=== PATIENT | male | born 1950 | race Caucasian/White ===

== ENCOUNTER → 2016-10-25 | Outpatient (CLI) | payer MEDICARE, OTHER | LOC: OD 15:23 | PROVIDERS: ATTEND Internal Medicine Infectious Disease | DX: N12 Tubulo-interstitial nephritis, not specified as acute or chronic (principal) | CPT/HCPCS: 87086; 87088; 87186 ==

== ENCOUNTER 2016-11-25 13:10 | Emergency (ER) | payer OTHER, MEDICARE ==
--- NOTE | 2016-11-25 13:37 | ER Document Report ---
ED Medical Screen (RME) - General Stated Complaint: LEFT FLANK PAIN Mode of Arrival: Ambulatory Information source: Patient Notes: c/o left flank pain who has been on 21 days of oral abx (Amoxicillin) and [facility] to come to ED for IV abx denies fever, chills, nausea, vomiting, diarrhea hx of bladder/prostate cancer, has ostomy bags in place TRAVEL OUTSIDE OF THE [place] IN LAST 30 DAYS: No - Related Data Allergies/Adverse Reactions: acetaminophen [From Percocet] Allergy (Verified 11/25/16 13:34) oxycodone [From Percocet] Allergy (Verified 11/25/16 13:34) Physical Exam - Vital signs Vitals: Temp Pulse BP Pulse Ox 97.8 F 100 145/105 H 97 11/25/16 13:25 11/25/16 13:25 11/25/16 13:25 11/25/16 13:25 Course - Vital Signs Vital signs: Temp Pulse Resp BP Pulse Ox 97.8 F 100 145/105 H 97 11/25/16 13:25 11/25/16 13:25 11/25/16 13:25 11/25/16 13:25
[2016-11-25 14:19] LABS: ABSOLUTE EOSINOPHILS # (AUTO) 0.1 10^3/uL (0.0-0.6); ABSOLUTE LYMPHOCYTES (AUTO) 3.1 10^3/uL (0.5-4.7); ABSOLUTE MONOCYTES (AUTO) 0.6 10^3/uL (0.1-1.4); ABSOLUTE NEUT (AUTO) 4.6 10^3/uL (1.7-8.2); BASOPHILS % (AUTO) 0.5 % (0-2); EOSINOPHILS % (AUTO) 1.4 % (0-6); HEMATOCRIT 48.9 % (37.9-51.0); HEMOGLOBIN 16.8 g/dL (13.5-17.0); HGB HCT DIFFERENCE 1.5; LYMPHOCYTES % (AUTO) 36.6 % (13-45); MEAN CORPUSCULAR HEMOGLOBIN 33.1 pg (27.0-33.4); MEAN CORPUSCULAR HGB CONC 34.4 g/dL (32.0-36.0); MEAN CORPUSCULAR VOLUME 96 fl (80-97); MONOCYTES % (AUTO) 6.9 % (3-13); RED CELL DISTRIBUTION WIDTH 14.2 % (11.5-14.0); SEGMENTED NEUTROPHILS % (AUTO) 54.6 % (42-78); WHITE BLOOD COUNT 8.5 10^3/uL (4.0-10.5)
[2016-11-25 14:34] LABS: ALANINE AMINOTRANSFERASE 49 U/L (21-72); ALBUMIN 4.4 g/dL (3.5-5.0); ALKALINE PHOSPHATASE 78 U/L (38-126); ANION GAP 15 (5-19); ASPARTATE AMINO TRANSFERASE 37 U/L (17-59); BILIRUBIN,TOTAL 0.9 mg/dL (0.2-1.3); BLOOD UREA NITROGEN 16 mg/dL (7-20); CALCIUM 10.3 mg/dL (8.4-10.2); CARBON DIOXIDE 20 mmol/L (22-30); CHLORIDE 110 mmol/L (98-107); CREATININE RESULT 1.33 mg/dL (0.52-1.25); GLUCOSE 118 mg/dL (75-110); POTASSIUM 4.1 mmol/L (3.6-5.0); TOTAL PROTEIN 8.5 g/dL (6.3-8.2)
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
[2016-11-25 20:16] LABS: APPEARANCE,URINE SLIGHTLY-CLOUDY; BILIRUBIN,URINE NEGATIVE (NEGATIVE); GLUCOSE, URINE NEGATIVE (NEGATIVE); KETONES,URINE NEGATIVE (NEGATIVE); LEUKOCYTE ESTERASE,URINE LARGE (NEGATIVE); NITRITE,URINE NEGATIVE (NEGATIVE); PROTEIN,URINE 30 mg/dL (NEGATIVE); UROBILINOGEN,URINE NEGATIVE mg/dL (<2.0)
[2016-11-25] MEDS ORDERED: CEFTRIAXONE RTU 1 GM/D5W 50 ML IV ONE (20:20)
[2016-11-26 00:06] VITALS: BP 137/89
== END 2016-11-26 00:04 | disposition home or self-care (01) ==
LOC: ER 13:10
DX: N12 Tubulo-interstitial nephritis, not specified as acute or chronic (principal); Z85.51 Personal history of malignant neoplasm of bladder; Z90.6 Acquired absence of other parts of urinary tract; Z90.79 Acquired absence of other genital organ(s); Z93.6 Other artificial openings of urinary tract status; Z88.6 Allergy status to analgesic agent; Z88.5 Allergy status to narcotic agent; I10 Essential (primary) hypertension
CPT/HCPCS: 99284; 96365; 36415; 87040; 87086; 83605; 85025; 87088; 80053; 81001; 87186; J0696

== ENCOUNTER → 2016-12-10 | Outpatient (CLI) | payer OTHER, MEDICARE ==
[2016-12-10 18:35] LABS: APPEARANCE,URINE TURBID; BILIRUBIN,URINE NEGATIVE (NEGATIVE); GLUCOSE, URINE NEGATIVE (NEGATIVE); KETONES,URINE NEGATIVE (NEGATIVE); LEUKOCYTE ESTERASE,URINE TRACE (NEGATIVE); NITRITE,URINE NEGATIVE (NEGATIVE); PROTEIN,URINE 30 mg/dL (NEGATIVE); TRIPLE PHOSPHATE CRYSTAL,URINE FEW /HPF; URINE SPECIFIC GRAVITY 1.012; UROBILINOGEN,URINE NEGATIVE mg/dL (<2.0)
== END ==
LOC: OD 16:27
PROVIDERS: ATTEND Physician Assistant
DX: N12 Tubulo-interstitial nephritis, not specified as acute or chronic (principal)
CPT/HCPCS: 81001; 87086; 87088; 87186

== ENCOUNTER → 2017-09-05 | Outpatient (CLI) | payer MEDICARE | LOC: OD 09:59 | PROVIDERS: ATTEND Physician Assistant | DX: N39.0 Urinary tract infection, site not specified (principal) | CPT/HCPCS: 87086; 87088; 87186 ==

== ENCOUNTER → 2018-09-06 | Outpatient (CLI) | payer OTHER ==
[~2018-09-06] MED LIST: REGADENOSON INJ 0.4 MG/5 ML DISP.SYRIN IV ONE
--- NOTE | 2018-09-08 17:00 | DRAGON STRESS TEST REPORT ---
Intravenous Lexiscan Cardiolite stress test using single photon emmision computerized tomography. Date of procedure: 09/06/2018. Ordering Provider: Dr. Val Leger, [facility]. Patient's status: Out Patient. Indication: Dyspnea. Coronary risk factors: Age, hypertension, and dyslipidemia. Resting EKG: Sinus Within Normal Limits. Stress EKG: No changes of ischemia. The patient no chest pain or discomfort, and there were no arrhythmias seen. Reason for termination: Protocol. Conclusions: Normal EKG and hemodynamic response to IV Lexiscan. Nuclear data: At rest the patient was given 12.81 millicuries of technetium 99m sestamibi injected intravenously. As per protocol rest non gated SPECT images were obtained. Subsequently the patient was given intravenous Lexiscan at a dose of 0.4 mg in 5 mL intravenously, followed by flush with normal saline. Subsequently the stress dose of 39.3 millicuries of technetium 99m sestamibi was injected intravenously. As per protocol stress gated images were obtained. Nuclear interpretation: Review of images showed that there is a perfusion defect involving the basal inferior wall in both rest and the stress images. This area of the basal inferior wall had decreased motion contraction and thickening, by gated study, consistent with a prior myocardial infarction. The rest of the segments of the myocardium had normal perfusion at rest, and normal perfusion post stress with IV Lexiscan. The rest of the segments of the myocardium had normal motion, contraction, and thickening by gated study. T. I D. ratio was normal at 1.04. Computer read rest, and stress left ventricular ejection fraction were 51 %, and 54 %, respectively. Visually both the stress and rest ejection fractions were normal, and greater than 55%. Conclusion: 1. There is no scintigraphic evidence of Lexiscan induced myocardial ischemia. 2. There is scintigraphic evidence of myocardial infarction/scar involving the basal inferior wall. Recommendations: 1. Correlate clinically. 2. Aggressive risk factor modification, and treating the underlying co- morbidities. RUBI
== END ==
LOC: RAD 06:51
PROVIDERS: ATTEND Physician Assistant Medical
DX: R06.00 Dyspnea, unspecified (principal)
CPT/HCPCS: 93017; 78452; A9500; J2785; Q9969

== ENCOUNTER 2019-04-12 22:09 | Inpatient (IN) | payer MEDICARE, OTHER ==
[2019-04-12] MEDS ORDERED: ACETAMINOPHEN 325 MG TABLET PO ONE (23:20)
[2019-04-12] MEDS ORDERED: NORMAL SALINE 1000 ML 1,000 ML IV ONE (23:21)
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
--- NOTE | 2019-04-12 23:47 | RADIOLOGY REPORT (SQ) ---
EXAM DESCRIPTION: [facility]: XR CHEST 1 VIEW CLINICAL HISTORY: 68 years Male, fever COMPARISON: 04/05/2016 FINDINGS: Lungs are clear, with no focal infiltrate, pneumothorax, or pleural effusion. Mediastinum is within normal limits for this positioning. There are degenerative changes of the left shoulder, similar to prior exam. [Surgical clip is again noted. IMPRESSION: 1. No acute pulmonary findings.
[2019-04-13 00:35] LABS: ABSOLUTE EOSINOPHILS # (AUTO) 0.1 10^3/uL (0.0-0.6); ABSOLUTE LYMPHOCYTES (AUTO) 1.3 10^3/uL (0.5-4.7); ABSOLUTE MONOCYTES (AUTO) 1.2 10^3/uL (0.1-1.4); ABSOLUTE NEUT (AUTO) 8.7 10^3/uL (1.7-8.2); BASOPHILS % (AUTO) 0.4 % (0-2); EOSINOPHILS % (AUTO) 0.6 % (0-6); HEMATOCRIT 43.5 % (37.9-51.0); HEMOGLOBIN 14.9 g/dL (13.5-17.0); LYMPHOCYTES % (AUTO) 11.3 % (13-45); MEAN CORPUSCULAR HEMOGLOBIN 33.2 pg (27.0-33.4); MEAN CORPUSCULAR HGB CONC 34.2 g/dL (32.0-36.0); MEAN CORPUSCULAR VOLUME 97 fl (80-97); MONOCYTES % (AUTO) 10.7 % (3-13); PLATELET COUNT 148 10^3/uL (150-450); RED BLOOD COUNT 4.48 10^6/uL (4.35-5.55); RED CELL DISTRIBUTION WIDTH 14.3 % (11.5-14.0); TOTAL CELLS COUNTED % (AUTO) 100 %; VENOUS BLOOD BASE EXCESS -1.6 mmol/L; VENOUS BLOOD HCO3 22.7 mmol/L (20-32); VENOUS BLOOD PCO2 37.1 mmHg (35-63); VENOUS BLOOD PH 7.4 (7.30-7.42); WHITE BLOOD COUNT 11.3 10^3/uL (4.0-10.5)
[2019-04-13 00:40] LABS: APPEARANCE,URINE CLOUDY; BILIRUBIN,URINE NEGATIVE (NEGATIVE); COLOR,URINE YELLOW; GLUCOSE, URINE 50 mg/dL (NEGATIVE); KETONES,URINE TRACE mg/dL (NEGATIVE); LEUKOCYTE ESTERASE,URINE NEGATIVE (NEGATIVE); NITRITE,URINE POSITIVE (NEGATIVE); PROTEIN,URINE 100 mg/dL (NEGATIVE); TRIPLE PHOSPHATE CRYSTAL,URINE FEW /HPF; URINE SPECIFIC GRAVITY 1.017; UROBILINOGEN,URINE NEGATIVE mg/dL (<2.0)
[2019-04-13 00:51] LABS: ALANINE AMINOTRANSFERASE 41 U/L (21-72); ALBUMIN 4.1 g/dL (3.5-5.0); ALKALINE PHOSPHATASE 62 U/L (38-126); ANION GAP 12 (5-19); ASPARTATE AMINO TRANSFERASE 38 U/L (17-59); BILIRUBIN,DIRECT 0.2 mg/dL (0.0-0.4); BILIRUBIN,TOTAL 0.8 mg/dL (0.2-1.3); BLOOD UREA NITROGEN 20 mg/dL (7-20); CALCIUM 9.5 mg/dL (8.4-10.2); CARBON DIOXIDE 20 mmol/L (22-30); CHLORIDE 110 mmol/L (98-107); GLUCOSE 119 mg/dL (75-110); POTASSIUM 4.2 mmol/L (3.6-5.0); SODIUM 142.1 mmol/L (137-145); TOTAL PROTEIN 7.4 g/dL (6.3-8.2)
[2019-04-13] MEDS ORDERED: CEFTRIAXONE 1 GM/D5W RTU 1 GM/50 ML RTUPB IV ONE (00:59)
[2019-04-13 01:02] LABS: APPEARANCE,URINE CLOUDY; BILIRUBIN,URINE NEGATIVE (NEGATIVE); COLOR,URINE YELLOW; GLUCOSE, URINE NEGATIVE (NEGATIVE); KETONES,URINE NEGATIVE (NEGATIVE); LEUKOCYTE ESTERASE,URINE LARGE (NEGATIVE); NITRITE,URINE NEGATIVE (NEGATIVE); PROTEIN,URINE 100 mg/dL (NEGATIVE); URINE SPECIFIC GRAVITY 1.011; UROBILINOGEN,URINE NEGATIVE mg/dL (<2.0)
--- NOTE | 2019-04-13 01:32 | RADIOLOGY REPORT (SQ) ---
EXAM DESCRIPTION: [facility]: CT ABDOMEN PELVIS WITHOUT IV CONTRAST CLINICAL HISTORY: 68 years Male; fever, hx kidney stones, urostomy, nephrostomy TECHNIQUE: CT of the abdomen and pelvis without contrast. All CT scans at this facility use dose modulation, iterative reconstruction, and/or weight based dosing when appropriate to reduce radiation dose to as low as reasonably achievable. COMPARISON: 04/05/2016 FINDINGS: Mild coronary artery calcifications. Abdomen: Liver:No focal lesions. No intrahepatic ductal distention. Gallbladder:Nondistended Pancreas:Within normal limits Spleen:Within normal limits Right kidney: No hydronephrosis. No ureteral distention. Left kidney: Percutaneous nephrostomy is in place, with tip in the extrarenal pelvis. No hydronephrosis. Minimal perinephric edema, without focal perinephric fluid collection. Ureter is nondistended, extending into the ileal conduit the right lower quadrant. Adrenal glands:Within normal limits Vascular structures: Mild scattered calcific plaque without aneurysm. Pelvis: Small bowel:No significant distention. Appendix: Not identified Colon: Scattered diverticula. No acute pericolonic edema or colonic distention. No free intraperitoneal fluid or air. Bones: Chronic degenerative changes throughout the lumbar spine. No acute bone findings. No suspicious focal bone lesions. Bladder: Absent. Ileal conduit in the right lower quadrant is nondistended. No adjacent edema. Prostate is not identified. No enlarged pelvic lymph nodes. Note that evaluation of the bowel and solid organs is somewhat limited due to lack of intravenous and oral contrast. IMPRESSION: 1. left percutaneous nephrostomy is in place. No hydronephrosis. Mild perinephric edema. Cannot exclude pyelonephritis. 2. Both ureters insert on right lower quadrant neobladder, without distention. 3. No acute findings 4. Mild colonic diverticulosis but no evidence for acute diverticulitis
[2019-04-13] MEDS ORDERED: MAG HYDROX/AL HYDROX/SIMETH SUSP 30 ML UDCUP PO PRN (02:52)
[2019-04-13] MEDS ORDERED: ACETAMINOPHEN 325 MG TABLET PO PRN (02:52)
[2019-04-13] MEDS ORDERED: IPRATROPIUM/ALBUTEROL 0.5-2.5 MG/3 ML AMPUL NEB PRN (02:52)
[2019-04-13] MEDS: NORMAL SALINE 1000 ML 1,000 ML IV PRN ×3 (04:35→17:34)
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
[2019-04-13] MEDS: HEPARIN SOD (PORCINE) 5,000 UNIT/ML 1 ML SYRINGE SUBCUT SCH ×3 (07:20→22:23)
[2019-04-13] MEDS: ACETAMINOPHEN 325 MG TABLET PO PRN ×2 (10:04→22:22)
[2019-04-13] MEDS ORDERED: ONDANSETRON HCL INJ/PF 4 MG/2 ML SDV IV PRN (10:18)
--- NOTE | 2019-04-13 12:08 | Progress Note ---
Provider Note Provider Note: SHARITA ORTIZ is a 68 year old male with a past medical history of hypertension and urinary bladder cancer status post resection with urostomy and nephrostomy with subsequent recurrent urinary tract infections who was admitted early this morning by the [facility] for pyelonephritis. Overnight events, Vital Signs, imaging and laboratory results, and orders reviewed. Agree with the plan of care as established by the previous provider. In addition have added prn tylenol, zofran, and gentle IVF.
--- NOTE | 2019-04-13 14:02 | EKG REPORT ---
SEVERITY:- ABNORMAL ECG - SINUS TACHYCARDIA PROBABLE INFERIOR INFARCT, AGE INDETERMINATE : Confirmed by: Dorina Koroma 13-Apr-2019 14:00:51
[2019-04-13] MEDS: METHOCARBAMOL 750 MG TABLET PO SCH ×2 (15:04→22:22)
[2019-04-13] MEDS: KETOROLAC TROMETHAMINE INJ/PF 30 MG/1 ML SDV IV PRN (17:33)
[2019-04-13] MEDS ORDERED: ACETAMINOPHEN 650 MG SUPP.RECT PR PRN (17:37)
[2019-04-13] MEDS ORDERED: PROMETHAZINE HCL INJ 25 MG/1 ML VIAL IV PRN (17:37)
[2019-04-13] MEDS ORDERED: CEFTRIAXONE 1 GM/D5W RTU 1 GM/50 ML RTUPB IV SCH (22:00)
[2019-04-13] MEDS: CEFTRIAXONE SODIUM 1,000 MG in DEXTROSE 5%-WATER 50 ML IV SCH (22:22)
[2019-04-14 05:23] LABS: ABSOLUTE EOSINOPHILS # (AUTO) 0.1 10^3/uL (0.0-0.6); ABSOLUTE LYMPHOCYTES (AUTO) 1.6 10^3/uL (0.5-4.7); ABSOLUTE MONOCYTES (AUTO) 1.2 10^3/uL (0.1-1.4); ABSOLUTE NEUT (AUTO) 4.4 10^3/uL (1.7-8.2); BASOPHILS % (AUTO) 0.3 % (0-2); HEMOGLOBIN 13.2 g/dL (13.5-17.0); LYMPHOCYTES % (AUTO) 21.9 % (13-45); MEAN CORPUSCULAR HEMOGLOBIN 33.4 pg (27.0-33.4); MEAN CORPUSCULAR HGB CONC 33.9 g/dL (32.0-36.0); MEAN CORPUSCULAR VOLUME 99 fl (80-97); MONOCYTES % (AUTO) 16.4 % (3-13); PLATELET COUNT 110 10^3/uL (150-450); RED BLOOD COUNT 3.95 10^6/uL (4.35-5.55); RED CELL DISTRIBUTION WIDTH 14.1 % (11.5-14.0); SEGMENTED NEUTROPHILS % (AUTO) 60.4 % (42-78); TOTAL CELLS COUNTED % (AUTO) 100 %; WHITE BLOOD COUNT 7.3 10^3/uL (4.0-10.5)
[2019-04-14 05:44] LABS: ANION GAP 8 (5-19); BLOOD UREA NITROGEN 18 mg/dL (7-20); CALCIUM 8.5 mg/dL (8.4-10.2); CARBON DIOXIDE 22 mmol/L (22-30); CHLORIDE 111 mmol/L (98-107); GLUCOSE 96 mg/dL (75-110); POTASSIUM 4.4 mmol/L (3.6-5.0); SODIUM 141.2 mmol/L (137-145)
[2019-04-14] MEDS: METHOCARBAMOL 750 MG TABLET PO SCH ×3 (06:36→21:21)
[2019-04-14] MEDS: TRAMADOL HCL 50 MG TABLET PO PRN (06:36)
[2019-04-14] MEDS: HEPARIN SOD (PORCINE) 5,000 UNIT/ML 1 ML SYRINGE SUBCUT SCH ×3 (06:36→21:20)
[2019-04-14] MEDS: ACETAMINOPHEN 325 MG TABLET PO PRN ×2 (08:29→23:10)
[2019-04-14] MEDS: CETIRIZINE 10 MG TABLET PO SCH (09:05)
[2019-04-14] MEDS: ASPIRIN 81 MG TABLET, ENT COATED PO SCH (09:05)
[2019-04-14] MEDS: ALLOPURINOL 100 MG TABLET PO SCH (09:05)
[2019-04-14] MEDS: KETOROLAC TROMETHAMINE INJ/PF 30 MG/1 ML SDV IV PRN (09:05)
--- NOTE | 2019-04-14 18:22 | PDOC PROGRESS REPORT ---
Subjective Progress Note for:: 04/14/19 Subjective:: ANGELLA ORTIZ is a 68 year old male with a past medical history of hypertension and urinary bladder cancer status post resection with urostomy and nephrostomy with subsequent recurrent urinary tract infections admitted on 04/13/19 for pyelonephritis. Patient was seen on afternoon rounds with family members present. He is found resting in bed comfortably on room air eating his dinner. He reports fever and chills overnight; T-max 100.2 and last 24 hours. He does report that his left flank pain is improved and his nausea and vomiting have resolved. ROS is otherwise negative. He has no new questions or concerns. No concerns per nursing. Reason For Visit: LEFT PYELO Physical Exam Vital Signs: Temp Pulse Resp BP Pulse Ox 98.2 F 54 L 16 102/75 96 04/14/19 11:25 04/14/19 14:00 04/14/19 11:25 04/14/19 11:25 04/14/19 11:25 Intake & Output 04/13/19 04/14/19 04/15/19 06:59 06:59 06:59 Intake Total 2050 2884 Output Total 225 1325 Balance 1825 1559 Weight 87.54 kg 84.3 kg General appearance: PRESENT: no acute distress, well-developed, well-nourished - overweight Head exam: PRESENT: atraumatic, normocephalic Eye exam: PRESENT: conjunctiva pink, EOMI, PERRLA. ABSENT: scleral icterus Ear exam: PRESENT: normal external ear exam Mouth exam: PRESENT: moist, tongue midline Neck exam: ABSENT: carotid bruit, JVD, lymphadenopathy, thyromegaly Respiratory exam: PRESENT: clear to auscultation jo ann, symmetrical, unlabored. ABSENT: rales, rhonchi, wheezes Cardiovascular exam: PRESENT: RRR. ABSENT: diastolic murmur, rubs, systolic murmur Pulses: PRESENT: normal dorsalis pedis pul Vascular exam: PRESENT: normal capillary refill GI/Abdominal exam: PRESENT: normal bowel sounds, soft. ABSENT: distended, guarding, mass, organolmegaly, rebound, tenderness Rectal exam: PRESENT: deferred Gentrourinary exam: PRESENT: other - urostomy and nephrostomy tubes; both draining clear urine. No gross hematuria noted Extremities exam: PRESENT: full ROM. ABSENT: calf tenderness, clubbing, pedal edema Neurological exam: PRESENT: alert, awake, oriented to person, oriented to place, oriented to time, oriented to situation, CN II-XII grossly intact. ABSENT: motor sensory deficit Psychiatric exam: PRESENT: appropriate affect, normal mood. ABSENT: homicidal ideation, suicidal ideation Skin exam: PRESENT: dry, intact, warm. ABSENT: cyanosis, rash Results Laboratory Results: 04/14/19 04:52 04/14/19 04:52 04/14/19 04/14/19 04:52 04:52 WBC 7.3 RBC 3.95 L Hgb 13.2 L Hct 39.0 MCV 99 H MCH 33.4 MCHC 33.9 RDW 14.1 H Plt Count 110 L Seg Neutrophils % 60.4 Lymphocytes % 21.9 Monocytes % 16.4 H Eosinophils % 1.0 Basophils % 0.3 Absolute Neutrophils 4.4 Absolute Lymphocytes 1.6 Absolute Monocytes 1.2 Absolute Eosinophils 0.1 Absolute Basophils 0.0 Sodium 141.2 Potassium 4.4 Chloride 111 H Carbon Dioxide 22 Anion Gap 8 BUN 18 Creatinine 1.40 H Est GFR ( Amer) > 60 Est GFR (Non-Af Amer) 50 L Glucose 96 Calcium 8.5 04/13/19 00:15 Troponin I < 0.012 Impressions: Chest X-Ray 04/12/19 23:20 IMPRESSION: 1. No acute pulmonary findings. Abdomen/Pelvis CT 04/13/19 00:22 IMPRESSION: 1. left percutaneous nephrostomy is in place. No hydronephrosis. Mild perinephric edema. Cannot exclude pyelonephritis. 2. Both ureters insert on right lower quadrant neobladder, without distention. 3. No acute findings 4. Mild colonic diverticulosis but no evidence for acute diverticulitis Assessment and Plan - Diagnosis (1) Pyelonephritis Is this a current diagnosis for this admission?: Yes Plan: Complicated by nephrostomy tube but without obstruction or abscess. Blood cultures are negative at 24 hours. Urostomy urine culture with 2 strains gram-negative rods and 1 strain gram- positive cocci. Nephrostomy urine culture with 2 strains gram-negative rods. Continue IV Rocephin; day #2. Continue gentle IV fluids. Antiemetics, antipyretics, and analgesics as needed. (2) Fever Qualifiers: Fever type: unspecified Qualified Code(s): R50.9 - Fever, unspecified Is this a current diagnosis for this admission?: Yes Plan: Secondary to #1. T-max 102 last 24 hours Cultures and antibiotics as above. (3) Left flank pain Is this a current diagnosis for this admission?: Yes Plan: Secondary to #1 Tylenol, Tramadol, and Toradol as needed (4) Leukocytosis Is this a current diagnosis for this admission?: Yes Plan: Resolved. Secondary to #1. Cultures and antibiotics as above.
[2019-04-14] MEDS: CEFTRIAXONE SODIUM 1,000 MG in DEXTROSE 5%-WATER 50 ML IV SCH (21:21)
[2019-04-15] MEDS: NORMAL SALINE 1000 ML 1,000 ML IV PRN (05:10)
[2019-04-15] MEDS: HEPARIN SOD (PORCINE) 5,000 UNIT/ML 1 ML SYRINGE SUBCUT SCH ×3 (05:10→21:57)
[2019-04-15] MEDS: METHOCARBAMOL 750 MG TABLET PO SCH ×3 (05:11→21:57)
[2019-04-15 05:39] LABS: HEMATOCRIT 35.5 % (37.9-51.0); HEMOGLOBIN 11.9 g/dL (13.5-17.0); MEAN CORPUSCULAR HGB CONC 33.6 g/dL (32.0-36.0); MEAN CORPUSCULAR VOLUME 98 fl (80-97); PLATELET COUNT 107 10^3/uL (150-450); RED BLOOD COUNT 3.62 10^6/uL (4.35-5.55); RED CELL DISTRIBUTION WIDTH 14.3 % (11.5-14.0); WHITE BLOOD COUNT 6.6 10^3/uL (4.0-10.5)
[2019-04-15 05:58] LABS: ANION GAP 9 (5-19); BLOOD UREA NITROGEN 16 mg/dL (7-20); CARBON DIOXIDE 19 mmol/L (22-30); CHLORIDE 113 mmol/L (98-107); GLUCOSE 120 mg/dL (75-110); SODIUM 140.6 mmol/L (137-145)
[2019-04-15] MEDS: ALLOPURINOL 100 MG TABLET PO SCH (09:39)
[2019-04-15] MEDS: CETIRIZINE 10 MG TABLET PO SCH (09:39)
[2019-04-15] MEDS: ASPIRIN 81 MG TABLET, ENT COATED PO SCH (09:39)
[2019-04-15] MEDS: ACETAMINOPHEN 325 MG TABLET PO PRN ×2 (09:42→21:56)
[2019-04-15] MEDS ORDERED: PIPERACILLIN SODIUM/TAZOBACTAM 3.375 GM in NORMAL SALINE 100 ML IV SCH (18:00)
--- NOTE | 2019-04-15 18:02 | PDOC PROGRESS REPORT ---
Subjective Progress Note for:: 04/15/19 Subjective:: ANGELLA ORTIZ is a 68 year old male with a past medical history of hypertension and urinary bladder cancer status post resection with urostomy and nephrostomy with subsequent recurrent urinary tract infections admitted on 04/13/19 for pyelonephritis. Patient was seen on afternoon rounds with family members present. He is found resting in bed comfortably on room air eating his dinner. He reports fever and chills overnight; T-max 100.1 and last 24 hours; 102 in last 48 hrs. He does report that his left flank pain is improved and his nausea and vomiting have re solved. ROS is otherwise negative. He has no new questions or concerns. No concerns per nursing. Reason For Visit: LEFT PYELO Physical Exam Vital Signs: Temp Pulse Resp BP Pulse Ox 99.2 F 48 L 18 127/58 H 95 04/15/19 03:57 04/15/19 14:00 04/15/19 11:45 04/15/19 03:57 04/15/19 11:45 Intake & Output 04/14/19 04/15/19 04/16/19 06:59 06:59 06:59 Intake Total 3884 1570 660 Output Total 1325 1000 Balance 2559 570 660 Weight 84.3 kg 87.9 kg General appearance: PRESENT: no acute distress, cooperative, well-developed, well-nourished - overweight Head exam: PRESENT: atraumatic, normocephalic Eye exam: PRESENT: conjunctiva pink, EOMI, PERRLA. ABSENT: scleral icterus Ear exam: PRESENT: normal external ear exam Mouth exam: PRESENT: moist, tongue midline Neck exam: ABSENT: carotid bruit, JVD, lymphadenopathy, thyromegaly Respiratory exam: PRESENT: clear to auscultation jo ann, symmetrical, unlabored. ABSENT: rales, rhonchi, wheezes Cardiovascular exam: PRESENT: RRR, +S1, +S2. ABSENT: diastolic murmur, rubs, systolic murmur Pulses: PRESENT: normal dorsalis pedis pul Vascular exam: PRESENT: normal capillary refill GI/Abdominal exam: PRESENT: normal bowel sounds, soft. ABSENT: distended, guarding, mass, organolmegaly, rebound, tenderness Rectal exam: PRESENT: deferred Gentrourinary exam: PRESENT: other - urostomy and nephrostomy tubes; both draining clear urine. Extremities exam: PRESENT: full ROM. ABSENT: calf tenderness, clubbing, pedal edema Neurological exam: PRESENT: alert, awake, oriented to person, oriented to place, oriented to time, oriented to situation, CN II-XII grossly intact. ABSENT: motor sensory deficit Psychiatric exam: PRESENT: appropriate affect, normal mood. ABSENT: homicidal ideation, suicidal ideation Skin exam: PRESENT: dry, intact, warm. ABSENT: cyanosis, rash Results Laboratory Results: 04/15/19 04:58 04/15/19 04:58 04/15/19 04/15/19 04:58 04:58 WBC 6.6 RBC 3.62 L Hgb 11.9 L Hct 35.5 L MCV 98 H MCH 33.0 MCHC 33.6 RDW 14.3 H Plt Count 107 L Sodium 140.6 Potassium 4.0 Chloride 113 H Carbon Dioxide 19 L Anion Gap 9 BUN 16 Creatinine 1.20 Est GFR ( Amer) > 60 Est GFR (Non-Af Amer) > 60 Glucose 120 H Calcium 8.0 L 04/13/19 00:15 Troponin I < 0.012 Impressions: Chest X-Ray 04/12/19 23:20 IMPRESSION: 1. No acute pulmonary findings. Abdomen/Pelvis CT 04/13/19 00:22 IMPRESSION: 1. left percutaneous nephrostomy is in place. No hydronephrosis. Mild perinephric edema. Cannot exclude pyelonephritis. 2. Both ureters insert on right lower quadrant neobladder, without distention. 3. No acute findings 4. Mild colonic diverticulosis but no evidence for acute diverticulitis Assessment and Plan - Diagnosis (1) Pyelonephritis Is this a current diagnosis for this admission?: Yes Plan: Complicated by nephrostomy tube but without obstruction or abscess. Blood cultures are negative at 48 hours. Urostomy urine culture with pseudomonas aeruginosa, enterococcus faecalis, and 1 strain gram-neg kellie Nephrostomy urine culture with pseudomonas aeruginosa and 1 strain gram- negative rods. Continue IV Rocephin; day #3. Start IV Levaquin (reports PCN allergy) Continue gentle IV fluids. Antiemetics, antipyretics, and analgesics as needed. (2) Fever Qualifiers: Fever type: unspecified Qualified Code(s): R50.9 - Fever, unspecified Is this a current diagnosis for this admission?: Yes Plan: Secondary to #1. T-max 100.1 last 24 hours, 102 last 48 Cultures and antibiotics as above. (3) Left flank pain Is this a current diagnosis for this admission?: Yes Plan: Improved. Secondary to #1 Tylenol, Tramadol, and Toradol as needed (4) Leukocytosis Is this a current diagnosis for this admission?: Yes Plan: Resolved. Secondary to #1. Cultures and antibiotics as above. - Time Time Spent with patient: 15-24 minutes Medications reviewed and adjusted accordingly: Yes Anticipated discharge: Home Within: within 48 hours
[2019-04-15] MEDS: LEVOFLOXACIN 750 MG/D5W RTU 750 MG/150 ML RTUPB IV SCH (18:47)
[2019-04-15] MEDS: CEFTRIAXONE SODIUM 1,000 MG in DEXTROSE 5%-WATER 50 ML IV SCH (21:56)
[2019-04-16] MEDS: METHOCARBAMOL 750 MG TABLET PO SCH ×3 (05:28→21:21)
[2019-04-16] MEDS: TRAMADOL HCL 50 MG TABLET PO PRN (05:28)
[2019-04-16] MEDS: HEPARIN SOD (PORCINE) 5,000 UNIT/ML 1 ML SYRINGE SUBCUT SCH ×3 (06:28→21:21)
[2019-04-16] MEDS: CETIRIZINE 10 MG TABLET PO SCH (10:57)
[2019-04-16] MEDS: ALLOPURINOL 100 MG TABLET PO SCH (10:58)
[2019-04-16] MEDS: ASPIRIN 81 MG TABLET, ENT COATED PO SCH (10:58)
[2019-04-16] MEDS: ACETAMINOPHEN 325 MG TABLET PO PRN ×2 (11:01→18:52)
[2019-04-16] MEDS: LEVOFLOXACIN 750 MG/D5W RTU 750 MG/150 ML RTUPB IV SCH (17:39)
--- NOTE | 2019-04-16 19:38 | PDOC PROGRESS REPORT ---
Subjective Progress Note for:: 04/16/19 Subjective:: ANGELLA ORTIZ is a 68 year old male with a past medical history of hypertension and urinary bladder cancer status post resection with urostomy and nephrostomy with subsequent recurrent urinary tract infections admitted on 04/13/19 for pyelonephritis. Patient was seen on afternoon rounds with family members present. He is found resting in bed comfortably on room air eating his dinner. T-max 100.1 and last 48 hrs. He does report that his left flank pain is improved and his nausea and vomiting have resolved. ROS is otherwise negative. He has no new questions or concerns. No concerns per nursing. Reason For Visit: LEFT PYELO Physical Exam Vital Signs: Temp Pulse Resp BP Pulse Ox 98.1 F 55 L 21 H 147/71 H 97 04/16/19 18:32 04/16/19 18:32 04/16/19 18:32 04/16/19 18:32 04/16/19 18:32 Intake & Output 04/15/19 04/16/19 04/17/19 06:59 06:59 06:59 Intake Total 1570 3060 Output Total 1000 1900 Balance 570 1160 Weight 87.9 kg 86.7 kg General appearance: PRESENT: no acute distress, cooperative, well-developed, well-nourished - overweight Head exam: PRESENT: atraumatic, normocephalic Eye exam: PRESENT: conjunctiva pink, EOMI, PERRLA. ABSENT: scleral icterus Ear exam: PRESENT: normal external ear exam Mouth exam: PRESENT: moist, tongue midline Neck exam: ABSENT: carotid bruit, JVD, lymphadenopathy, thyromegaly Respiratory exam: PRESENT: clear to auscultation jo ann, symmetrical, unlabored. ABSENT: rales, rhonchi, wheezes Cardiovascular exam: PRESENT: RRR. ABSENT: diastolic murmur, rubs, systolic murmur Pulses: PRESENT: normal dorsalis pedis pul Vascular exam: PRESENT: normal capillary refill GI/Abdominal exam: PRESENT: normal bowel sounds, soft. ABSENT: distended, guarding, mass, organolmegaly, rebound, tenderness Rectal exam: PRESENT: deferred Gentrourinary exam: PRESENT: other - left nephrostomy, urostomy Extremities exam: PRESENT: full ROM. ABSENT: calf tenderness, clubbing, pedal edema Neurological exam: PRESENT: alert, awake, oriented to person, oriented to place, oriented to time, oriented to situation, CN II-XII grossly intact. ABSENT: motor sensory deficit Psychiatric exam: PRESENT: appropriate affect, normal mood. ABSENT: homicidal ideation, suicidal ideation Skin exam: PRESENT: dry, intact, warm. ABSENT: cyanosis, rash Results Laboratory Results: 04/15/19 04:58 04/15/19 04:58 04/13/19 00:07 Urostomy Urine Culture - Final Pseudomonas Aeruginosa Enterococcus Faecalis(Group D) 04/13/19 00:15 Troponin I < 0.012 Impressions: Chest X-Ray 04/12/19 23:20 IMPRESSION: 1. No acute pulmonary findings. Abdomen/Pelvis CT 04/13/19 00:22 IMPRESSION: 1. left percutaneous nephrostomy is in place. No hydronephrosis. Mild perinephric edema. Cannot exclude pyelonephritis. 2. Both ureters insert on right lower quadrant neobladder, without distention. 3. No acute findings 4. Mild colonic diverticulosis but no evidence for acute diverticulitis Assessment and Plan - Diagnosis (1) Pyelonephritis Is this a current diagnosis for this admission?: Yes Plan: Complicated by nephrostomy tube but without obstruction or abscess. Blood cultures are negative at 48 hours. Urostomy urine culture with pseudomonas aeruginosa, enterococcus faecalis Nephrostomy urine culture with pseudomonas aeruginosa, Gram negative rods, and gram positive cocci Continue IV Rocephin; day #4. Continue IV Levaquin (reports PCN allergy); Day #2 Continue gentle IV fluids. Antiemetics, antipyretics, and analgesics as needed. Patient is requesting consideration of being placed on prophylactic antibiotic therapy to begin following treatment for acute infection. He may also benefit from outpatient ID follow up (2) Fever Qualifiers: Fever type: unspecified Qualified Code(s): R50.9 - Fever, unspecified Is this a current diagnosis for this admission?: Yes Plan: Improved. Secondary to #1. T-max 100.1 last 48 Cultures and antibiotics as above. (3) Left flank pain Is this a current diagnosis for this admission?: Yes Plan: Improved. Secondary to #1 Tylenol, Tramadol, and Toradol as needed (4) Leukocytosis Is this a current diagnosis for this admission?: Yes Plan: Resolved. Secondary to #1. Cultures and antibiotics as above. - Time Time Spent with patient: 25-34 minutes Medications reviewed and adjusted accordingly: Yes Anticipated discharge: Home Within: within 24 hours
[2019-04-16] MEDS: CEFTRIAXONE SODIUM 1,000 MG in DEXTROSE 5%-WATER 50 ML IV SCH (21:20)
[2019-04-17] MEDS: HEPARIN SOD (PORCINE) 5,000 UNIT/ML 1 ML SYRINGE SUBCUT SCH ×3 (05:21→21:14)
[2019-04-17] MEDS: METHOCARBAMOL 750 MG TABLET PO SCH ×3 (05:24→21:20)
[2019-04-17 08:01] LABS: ANION GAP 9 (5-19); BLOOD UREA NITROGEN 14 mg/dL (7-20); CALCIUM 8.9 mg/dL (8.4-10.2); CARBON DIOXIDE 24 mmol/L (22-30); CHLORIDE 110 mmol/L (98-107); GLUCOSE 99 mg/dL (75-110); POTASSIUM 4.4 mmol/L (3.6-5.0)
[2019-04-17 08:04] LABS: HEMATOCRIT 38.8 % (37.9-51.0); HEMOGLOBIN 13.1 g/dL (13.5-17.0); MEAN CORPUSCULAR HEMOGLOBIN 32.9 pg (27.0-33.4); MEAN CORPUSCULAR HGB CONC 33.9 g/dL (32.0-36.0); MEAN CORPUSCULAR VOLUME 97 fl (80-97); PLATELET COUNT 126 10^3/uL (150-450); RED BLOOD COUNT 3.99 10^6/uL (4.35-5.55); WHITE BLOOD COUNT 5.5 10^3/uL (4.0-10.5)
[2019-04-17] MEDS: ASPIRIN 81 MG TABLET, ENT COATED PO SCH (09:21)
[2019-04-17] MEDS: ALLOPURINOL 100 MG TABLET PO SCH (09:21)
[2019-04-17] MEDS: CETIRIZINE 10 MG TABLET PO SCH (09:21)
[2019-04-17] MEDS: ACETAMINOPHEN 325 MG TABLET PO PRN ×2 (09:25→14:26)
--- NOTE | 2019-04-17 16:54 | Progress Note ---
Provider Note Provider Note: ID Consult Note Asked to review patient's chart by Pharmacy. Pt not seen or examined. Pt is a 68 year old man with HTN and bladder cancer s/p cystectomy with ileal conduit in the RLQ and percutaneous nephrostomy on the L. The patient presented with fever on 04/12 along with L flank pain and nausea of acute onset. On exam pt was appreciated as having L flank tenderness. His abdomen was soft and nontender. CT scan without IV contrast was performed, which showed minimal perinephric edema without focal perinephric fluid collection, no hydronephrosis, and diverticulosis without diverticulitis. Blood cultures were drawn, which are negative x 4 days. Urine culture from the ileal conduit and the nephrostomy were sent. Rocephin was started. Levaquin was added after L nephrostomy culture grew >100k cfu Pseudomonas and >100k cfu Enterococcus and another GNR that has not yet been identified. Per most recent notes, pt has had resolution of nausea and vomiting and his flank pain has improved. He has not had a fever since 04/13. Presently, he is receiving both Levaquin and Rocephin. The Micro lab reports that the 2nd GNR is likely to be identified tomorrow. If Levaquin is active against both GNRs, completing a 7 day course of Levaquin should be sufficient. In terms of prevention, unfortunately, there is no clear role for prophylactic antibiotics in the setting of a permanent predisposing anatomical abnormality, as is the case with an ileal conduit. Patients can develop adverse effects to antibiotics with long-term use, and continued antibiotic exposure is also likely to lead to antibiotic resistance. There are a finite number of treatment options available to the patient if he becomes septic. If the patient develops symptoms and signs that are consistent with pyelonephritis, he should have cultures drawn promptly and appropriate antibiotics administered, but attempting to eradicate the bacterial colonization that is almost always present when patients have an ileal conduit is not likely to work and is more likely to result in harm. Franklyn Broussard MD [facility] Infectious Diseases pager [phone]
--- NOTE | 2019-04-17 16:55 | PDOC PROGRESS REPORT ---
Subjective Progress Note for:: 04/17/19 Subjective:: This is a very pleasant 68 years old male patient who presented with chief complaint of left-sided flank pain. Patient has a history of hypertension, bladder cancer status post resection with urostomy and nephrostomy and he has recurrent urinary tract infection. During this admission his urine analysis positive for leukocyte esterase, nitrite and pyuria. His urine culture is also positive for Pseudomonas aeruginosa and Enterococcus faecalis. Patient has been on ceftriaxone and Levaquin. He reports this is left-sided flank pain has been subsiding. His CT scan also reveals pyelonephritis without abscess and or obstruction. This morning I seen patient sitting on recliner. He is awake alert oriented he is not in pain or distress. Reason For Visit: LEFT PYELO Physical Exam Vital Signs: Temp Pulse Resp BP Pulse Ox 98.1 F 46 L 16 142/77 H 95 04/17/19 16:36 04/17/19 16:36 04/17/19 16:36 04/17/19 16:36 04/17/19 16:36 Intake & Output 04/16/19 04/17/19 04/18/19 06:59 06:59 06:59 Intake Total 3060 1994 589 Output Total 1900 2580 200 Balance 1160 -586 389 Weight 86.7 kg Results Laboratory Results: 04/17/19 07:04 04/17/19 07:04 04/17/19 04/17/19 07:04 07:04 WBC 5.5 RBC 3.99 L Hgb 13.1 L Hct 38.8 MCV 97 MCH 32.9 MCHC 33.9 RDW 14.0 Plt Count 126 L Sodium 143.0 Potassium 4.4 Chloride 110 H Carbon Dioxide 24 Anion Gap 9 BUN 14 Creatinine 1.21 Est GFR ( Amer) > 60 Est GFR (Non-Af Amer) 59 L Glucose 99 Calcium 8.9 04/13/19 00:15 Troponin I < 0.012 Impressions: Chest X-Ray 04/12/19 23:20 IMPRESSION: 1. No acute pulmonary findings. Abdomen/Pelvis CT 04/13/19 00:22 IMPRESSION: 1. left percutaneous nephrostomy is in place. No hydronephrosis. Mild perinephric edema. Cannot exclude pyelonephritis. 2. Both ureters insert on right lower quadrant neobladder, without distention. 3. No acute findings 4. Mild colonic diverticulosis but no evidence for acute diverticulitis Assessment and Plan - Diagnosis (1) Pyelonephritis of left kidney Is this a current diagnosis for this admission?: Yes Plan: Continue current antibiotics (2) Hypertension Qualifiers: Hypertension type: essential hypertension Qualified Code(s): I10 - Essential (primary) hypertension Is this a current diagnosis for this admission?: Yes Plan: Continue home medication (3) History of bladder cancer Is this a current diagnosis for this admission?: Yes Plan: Status post urostomy and nephrostomy.
[2019-04-17] MEDS: LEVOFLOXACIN 750 MG/D5W RTU 750 MG/150 ML RTUPB IV SCH (17:32)
[2019-04-17] MEDS: CEFTRIAXONE SODIUM 1,000 MG in DEXTROSE 5%-WATER 50 ML IV SCH (21:20)
[2019-04-18] MEDS: HEPARIN SOD (PORCINE) 5,000 UNIT/ML 1 ML SYRINGE SUBCUT SCH (05:35)
[2019-04-18] MEDS: METHOCARBAMOL 750 MG TABLET PO SCH (05:37)
[2019-04-18] MEDS: CETIRIZINE 10 MG TABLET PO SCH (10:04)
[2019-04-18] MEDS: ASPIRIN 81 MG TABLET, ENT COATED PO SCH (10:04)
[2019-04-18] MEDS: ALLOPURINOL 100 MG TABLET PO SCH (10:04)
[2019-04-18] MEDS: ACETAMINOPHEN 325 MG TABLET PO PRN (10:06)
--- NOTE | 2019-04-18 10:50 | PDOC DISCHARGE SUMMARY ---
General - Admit/Disc Date/PCP Admission Date/Primary Care Provider: 04/13/19 03:00 Discharge Date: 04/18/19 - Discharge Diagnosis (1) Pyelonephritis of left kidney Is this a current diagnosis for this admission?: Yes (2) Hypertension Is this a current diagnosis for this admission?: Yes (3) History of bladder cancer Is this a current diagnosis for this admission?: Yes - Additional Information Resuscitation Status: Full Code Home Medications: Acetaminophen [Tylenol Extra Strength 500 mg Tablet] 500 mg PO ASDIR PRN 04/13/19 Allopurinol [Zyloprim 100 mg Tablet] 100 mg PO DAILY 04/13/19 Aspirin [Ecotrin 81 mg EC Tablet] 81 mg PO DAILY 04/13/19 Cetirizine HCl [Zyrtec 10 mg Tablet] 10 mg PO DAILY 04/13/19 Hydralazine HCl [Apresoline 25 mg Tablet] 25 mg PO ASDIR PRN 04/13/19 Methocarbamol [Robaxin 750 mg Tablet] 750 mg PO Q8 04/13/19 Ondansetron HCl [Zofran 8 mg Tablet] 8 mg PO DAILY 04/13/19 History of Present Illness History of Present Illness: SHARITA ORTIZ is a 68 year old male with a past medical history of hypertension and urinary bladder cancer status post resection with urostomy and nephrostomy with subsequent recurrent urinary tract infections. He presents with 12 hours of malodorous urine developing left-sided flank pain and fever prompting evaluation in the emergency room where he is found to have pyuria leukocytosis and fever, CT reveals pyelonephritis without abscess or obstr uction. He receives empiric antibiotics and referred to the hospitalist for admission. Patient's urologist is Dr. Khan at [facility]. Hospital Course Hospital Course: This is a very pleasant 68 years old male patient who presented with chief complaint of left-sided flank pain. Patient has a history of hypertension, bladder cancer status post resection with urostomy and nephrostomy and he has recurrent urinary tract infection. During this admission his urine analysis positive for leukocyte esterase, nitrite and pyuria. His urine culture is also positive for Pseudomonas aeruginosa and Enterococcus faecalis. Patient has been on ceftriaxone and Levaquin. He reports this is left-sided flank pain has been subsiding. His CT scan also reveals pyelonephritis without abscess and or obstruction. This morning I seen patient sitting on recliner. He is awake alert oriented he is not in pain or distress. 04/18/2019: Patient seen and examined at bedside. He is awake alert oriented he complains of some headache. Otherwise patient does not have any fever nausea or vomiting. He is urine culture grew 3 organisms first is Pseudomonas aeruginosa, second Enterococcus faecalis and insert is gram-negative identified as E. coli. Patient completed 5 days course of antibiotics. His vital signs are stable. I will continue all his home medication and I will send him with 7 days course of Levaquin since patient has history of recurrent urinary tract infection and also has ileal conduit and left nephrostomy. Physical Exam Vital Signs: Temp Pulse Resp BP Pulse Ox 98.4 F 53 L 16 133/71 H 96 04/17/19 19:14 04/17/19 19:14 04/17/19 19:14 04/17/19 19:14 04/17/19 19:14 Intake & Output 04/17/19 04/18/19 04/19/19 06:59 06:59 06:59 Intake Total 2044 1109 Output Total 2580 1370 Balance -536 -261 Weight 86.5 kg General appearance: PRESENT: no acute distress Eye exam: PRESENT: conjunctiva pink Neck exam: ABSENT: carotid bruit, JVD, lymphadenopathy, thyromegaly Respiratory exam: PRESENT: clear to auscultation jo ann. ABSENT: rales, rhonchi, wheezes Cardiovascular exam: PRESENT: RRR. ABSENT: diastolic murmur, rubs, systolic murmur GI/Abdominal exam: PRESENT: other - Nephrostomy and ileal conduit in place. Neurological exam: PRESENT: alert, awake, oriented to person, oriented to place, oriented to time, oriented to situation Results Laboratory Results: 04/17/19 07:04 04/17/19 07:04 04/13/19 00:28 Nephrostomy - Left Urine Culture - Final Pseudomonas Aeruginosa Escherichia Coli Enterococcus Faecalis(Group D) 04/13/19 01:03 Blood Blood Culture - Final NO GROWTH IN 5 DAYS 04/13/19 00:15 Blood Blood Culture - Final NO GROWTH IN 5 DAYS 04/13/19 00:15 Troponin I < 0.012 Impressions: Chest X-Ray 04/12/19 23:20 IMPRESSION: 1. No acute pulmonary findings. Abdomen/Pelvis CT 04/13/19 00:22 IMPRESSION: 1. left percutaneous nephrostomy is in place. No hydronephrosis. Mild perinephric edema. Cannot exclude pyelonephritis. 2. Both ureters insert on right lower quadrant neobladder, without distention. 3. No acute findings 4. Mild colonic diverticulosis but no evidence for acute diverticulitis Qualifiers - * PATIENT BEING DISCHARGED WITH ANY OF THE FOLLOWING DIAGNOSIS: No Acute Heart Failure - Is this a Heart Failure Patient?: No LVEF < 40%?: No- if no continue to question #3 3. Anticoagulant therapy for permanect/persistent/paraoxysmal Afib or Aflutter: N/A
[2019-04-18 12:14] VITALS: BP 159/79
== END 2019-04-18 11:45 | disposition home or self-care (01) | DRG 690 ==
LOC: ER 22:09 → EH 04-13 03:00 → 4S 04-13 05:00
PROVIDERS: ADMIT Internal Medicine; ATTEND Internal Medicine
DX: N12 Tubulo-interstitial nephritis, not specified as acute or chronic (principal); I10 Essential (primary) hypertension; M19.90 Unspecified osteoarthritis, unspecified site; G43.909 Migraine, unspecified, not intractable, without status migrainosus; M10.9 Gout, unspecified; K57.90 Diverticulosis of intestine, part unspecified, without perforation or abscess without bleeding; Z88.5 Allergy status to narcotic agent; B96.5 Pseudomonas (aeruginosa) (mallei) (pseudomallei) as the cause of diseases classified elsewhere; B95.2 Enterococcus as the cause of diseases classified elsewhere; B96.20 Unspecified Escherichia coli [E. coli] as the cause of diseases classified elsewhere
CPT/HCPCS: 36415; 71045; 74176; 80048; 80053; 81001; 82803; 83605; 84484; 85025; 85027; 87040; 87086; 87088; 87186; 93005; 93010; 96360; 99285; J0696; J1885; J1956; J2550; J3490; J7030; J7060

== ENCOUNTER 2019-07-05 07:09 | Day surgery (SDC) | payer OTHER, MEDICARE ==
[~2019-07-05 07:09] MED LIST changes: +KETOROLAC TROMETHAMINE 0.45% 4 DROP/0.4 ML DROPERETTE OS PRN; -REGADENOSON INJ 0.4 MG/5 ML DISP.SYRIN IV ONE
[2019-07-05] MEDS ORDERED: ONDANSETRON HCL INJ/PF 4 MG/2 ML SDV ONE (07:47)
[2019-07-05] MEDS ORDERED: MIDAZOLAM 2 MG/2 ML INJ ONE (07:47)
[2019-07-05] MEDS ORDERED: FENTANYL CITRATE INJ/PF 100 MCG/2 ML AMPUL ONE (07:47)
[2019-07-05] MEDS: BESIFLOXACIN HCL 0.6% OPH SUSP 5 ML BOTTLE OS PRN ×4 (08:20→09:06)
[2019-07-05] MEDS: TROPICAMIDE 1% OPH SOLN 15 ML OS PRN ×3 (08:20→08:40)
[2019-07-05] MEDS: TETRACAINE HCL 0.5% OPH SOLN 4 ML OS PRN ×4 (08:20→08:42)
[2019-07-05] MEDS: CYCLOPENTOLATE 0.2%/PHENYLEPHRINE 1% OPH SOLN 2 ML OS PRN ×3 (08:20→08:40)
[2019-07-05] MEDS: CHONDR SU A NA/HYALUR INTRAOC KIT (SURGICARE) ONE ×2 (08:51)
[2019-07-05] MEDS: EPINEPHRINE INJ/PF 1 MG/1 ML AMPULE ONE ×2 (08:51)
[2019-07-05] MEDS: LIDOCAINE 1%/PHENYLEPHRINE 1.5% 1 ML VIAL ONE ×2 (08:51)
[2019-07-05] MEDS: DORZOLAMIDE HCL 2%/TIMOLOL MALEAT 0.5% OPH SOLN 10 ML OS PRN ×2 (09:06)
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
== END 2019-07-05 09:50 | disposition home or self-care (01) ==
LOC: SC 07:09
PROVIDERS: ATTEND Internal Medicine
DX: H25.813 Combined forms of age-related cataract, bilateral (principal); H11.153 Pinguecula, bilateral; H04.123 Dry eye syndrome of bilateral lacrimal glands; J45.909 Unspecified asthma, uncomplicated; I10 Essential (primary) hypertension; M10.9 Gout, unspecified; Z79.899 Other long term (current) drug therapy
CPT/HCPCS: 66984; 00142; V2788; J2250; J3490 ×2; J0171; J3010; J2405; J2370; 142

== ENCOUNTER 2019-11-08 08:50 | Day surgery (SDC) | payer OTHER, MEDICARE ==
[~2019-11-08 08:50] MED LIST changes: +CHONDR SU A NA/HYALUR INTRAOC KIT (SURGICARE) ONE; +DORZOLAMIDE HCL 2%/TIMOLOL MALEAT 0.5% OPH SOLN 10 ML OD PRN; +EPINEPHRINE INJ/PF 1 MG/1 ML AMPULE ONE; +KETOROLAC TROMETHAMINE 0.45% 4 DROP/0.4 ML DROPERETTE OD PRN; -KETOROLAC TROMETHAMINE 0.45% 4 DROP/0.4 ML DROPERETTE OS PRN; +LIDOCAINE 1%/PHENYLEPHRINE 1.5% 1 ML VIAL ONE
[2019-11-08] MEDS: TETRACAINE HCL 0.5% OPH SOLN 4 ML OD PRN ×3 (09:33→10:07)
[2019-11-08] MEDS: BESIFLOXACIN HCL 0.6% OPH SUSP 5 ML BOTTLE OD PRN ×3 (09:34→10:35)
[2019-11-08] MEDS: TROPICAMIDE 1% OPH SOLN 15 ML OD PRN ×3 (09:34→09:56)
[2019-11-08] MEDS: CYCLOPENTOLATE 0.2%/PHENYLEPHRINE 1% OPH SOLN 2 ML OD PRN ×3 (09:34→09:56)
[2019-11-08] MEDS ORDERED: MIDAZOLAM 2 MG/2 ML INJ ONE (10:00)
[2019-11-08] MEDS ORDERED: FENTANYL CITRATE INJ/PF 100 MCG/2 ML AMPUL ONE (10:00)
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
== END 2019-11-08 11:20 | disposition home or self-care (01) ==
LOC: SC 08:50
PROVIDERS: ATTEND Internal Medicine
DX: H25.811 Combined forms of age-related cataract, right eye (principal); I10 Essential (primary) hypertension; H20.012 Primary iridocyclitis, left eye; Z79.899 Other long term (current) drug therapy; Z88.5 Allergy status to narcotic agent
CPT/HCPCS: 66984; V2788; J2250; J3490 ×2; J0171; J3010; J2370; 142

== ENCOUNTER 2019-11-26 17:59 | Observation (INO) | payer OTHER, MEDICARE ==
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
[2019-11-26] MEDS ORDERED: PIPERACILLIN/TAZOBACTAM 3.375 GM VIAL IV ONE ×2 (20:13→21:00)
[2019-11-26 20:50] LABS: ABSOLUTE EOSINOPHILS # (AUTO) 0.2 10^3/uL (0.0-0.6); ABSOLUTE LYMPHOCYTES (AUTO) 2.9 10^3/uL (0.5-4.7); ABSOLUTE MONOCYTES (AUTO) 0.6 10^3/uL (0.1-1.4); ABSOLUTE NEUT (AUTO) 4.2 10^3/uL (1.7-8.2); BASOPHILS % (AUTO) 0.6 % (0-2); HEMATOCRIT 44.8 % (37.9-51.0); HEMOGLOBIN 15.1 g/dL (13.5-17.0); LYMPHOCYTES % (AUTO) 36.4 % (13-45); MEAN CORPUSCULAR HEMOGLOBIN 32.7 pg (27.0-33.4); MEAN CORPUSCULAR HGB CONC 33.8 g/dL (32.0-36.0); MEAN CORPUSCULAR VOLUME 97 fl (80-97); MONOCYTES % (AUTO) 7.6 % (3-13); PLATELET COUNT 181 10^3/uL (150-450); RED BLOOD COUNT 4.62 10^6/uL (4.35-5.55); RED CELL DISTRIBUTION WIDTH 14.4 % (11.5-14.0); SEGMENTED NEUTROPHILS % (AUTO) 53.4 % (42-78); TOTAL CELLS COUNTED % (AUTO) 100 %; WHITE BLOOD COUNT 7.9 10^3/uL (4.0-10.5)
[2019-11-26 21:08] LABS: ALBUMIN 4.1 g/dL (3.5-5.0); ALKALINE PHOSPHATASE 54 U/L (38-126); ANION GAP 10 (5-19); ASPARTATE AMINO TRANSFERASE 37 U/L (17-59); BILIRUBIN,TOTAL 0.6 mg/dL (0.2-1.3); BLOOD UREA NITROGEN 15 mg/dL (7-20); CALCIUM 9.8 mg/dL (8.4-10.2); CARBON DIOXIDE 22 mmol/L (22-30); CHLORIDE 109 mmol/L (98-107); GLUCOSE 115 mg/dL (75-110); POTASSIUM 4.2 mmol/L (3.6-5.0); TOTAL PROTEIN 7.4 g/dL (6.3-8.2)
[2019-11-26 21:09] LABS: INTERNATIONAL RATION (INR) 1.09; PROTHROMBIN TIME 14.2 SEC (11.4-15.4)
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
[2019-11-26 22:26] LABS: VENOUS BLOOD BASE EXCESS -3.2 mmol/L; VENOUS BLOOD HCO3 21.4 mmol/L (20-32); VENOUS BLOOD PCO2 38.3 mmHg (35-63); VENOUS BLOOD PH 7.37 (7.30-7.42)
[2019-11-26 23:07] LABS: APPEARANCE,URINE SLIGHTLY-CLOUDY; BILIRUBIN,URINE NEGATIVE (NEGATIVE); COLOR,URINE YELLOW; GLUCOSE, URINE NEGATIVE (NEGATIVE); KETONES,URINE NEGATIVE (NEGATIVE); LEUKOCYTE ESTERASE,URINE LARGE (NEGATIVE); LEUKOCYTE ESTERASE,URINE TRACE (NEGATIVE); NITRITE,URINE NEGATIVE (NEGATIVE); PROTEIN,URINE 30 mg/dL (NEGATIVE); PROTEIN,URINE NEGATIVE (NEGATIVE); URINE SPECIFIC GRAVITY 1.013; URINE SPECIFIC GRAVITY 1.014; UROBILINOGEN,URINE NEGATIVE mg/dL (<2.0)
[2019-11-27] MEDS ORDERED: ACETAMINOPHEN 325 MG TABLET PO PRN (00:21)
[2019-11-27] MEDS ORDERED: IPRATROPIUM/ALBUTEROL 0.5-2.5 MG/3 ML AMPUL NEB PRN (00:21)
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
[2019-11-27] MEDS ORDERED: MEROPENEM 1 GM in NORMAL SALINE 50 ML IV SCH ×2 (06:00→10:00)
[2019-11-27] MEDS ORDERED: MEROPENEM 1 GM VIAL IV PRN (06:44)
[2019-11-27] MEDS: HEPARIN SOD (PORCINE) 5,000 UNIT/ML 1 ML VIAL SUBCUT SCH ×3 (07:34→21:24)
[2019-11-27] MEDS: LISINOPRIL 10 MG TABLET PO SCH (09:47)
--- NOTE | 2019-11-27 11:14 | RADIOLOGY REPORT (SQ) ---
EXAM DESCRIPTION: PICC INSERTION; U/S GUIDE FOR VASCULAR ACCESS; FLUORO/CV PLACEMENT COMPLETED DATE/TIME: 11/27/2019 11:01 am; 11/27/2019 11:02 am REASON FOR STUDY: Outpatient, IV antibiotics; IB ABX; IV ABX COMPARISON: AP chest 04/12/2019 FLUOROSCOPY TIME: 8 seconds 1 digital fluoroscopic and 1 ultrasound images saved to PACS. TECHNIQUE: Fluoroscopic and ultrasound guided PICC placement. LIMITATIONS: None. PROCEDURE: After written consent and assessment were obtained, the patient was brought into the fluo roscopy room and placed supine on the table. Ultrasound evaluation of potential access sites were per formed. After successfully identifying a patent left basilic vein, the left arm was prepped and drape d in a sterile fashion along with the ultrasound probe. The entry site was anesthetized with 1% lidoc ariel. A 21 gauge 7 cm needle was advanced through the skin and into the basilic vein under live ultra sound guidance. An ultrasound image was saved to PACS confirming access site. A .018 guide wire was then inserted through the needle and into the venous system. The needle was then removed and an 11 b lade scalpel was used to make a 1cm skin incision. A 5 fr peel-away sheath was advanced over the wir e and into the venous system. A measurement was then made using the existing wire and live fluoroscop ic guidance. The wire was then removed and trimmed. The PICC was advanced through the peel-away sheat h and into the venous system. The peel-away sheath was removed and the catheter was adhered to the pa tients arm with a stat lock. The catheter was then aspirated and flushed and a sterile bandage was pl aced over the access site. A fluoroscopic spot image was saved to PACS confirming the catheter tip w ithin the superior vena cava. IMPRESSION: SUCCESSFUL PLACEMENT OF A 5 FR DUAL LUMEN 42 CM PICC IN THE LEFT BASILIC VEIN. COMMENT: Patient medication list reviewed: Yes- Quality ID# 130:Eligible professional attests to doc umenting in the medical record they obtained, updated, or reviewed the patient's current medications. . Quality ID 145: Final reports for procedures using fluoroscopy that document radiation exposure sumaya umberto, or exposure time and number of fluorographic images (if radiation exposure indices are not avail able) Quality ID #76: The patient was prepped and draped using maximum sterile barrier technique including cap, mask, sterile gown, sterile gloves, a large sterile sheet, hand hygiene, and 2% Chlorhexidine fo r cutaneous antisepsis. When ultrasound is used, sterile ultrasound techniques are followed requiring sterile gel and sterile probes. TECHNICAL DOCUMENTATION: JOB ID: [id number] 2010 [employer]- All Rights Reserved rev-02/24 Reading location - IP/workstation name: [facility]
[2019-11-27] MEDS ORDERED: ONDANSETRON HCL 8 MG TABLET PO PRN (15:36)
[2019-11-27] MEDS ORDERED: CARBOXYMETHYLCELLULOSE SOD 0.5% 0.4 ML DROPERETTE OU PRN (15:36)
[2019-11-27] MEDS ORDERED: CETIRIZINE 10 MG TABLET PO PRN (15:36)
[2019-11-27] MEDS: HYDRALAZINE HCL 25 MG TABLET PO SCH (17:41)
[2019-11-27] MEDS: CEFEPIME HCL 2 GM in DEXTROSE 5%-WATER 50 ML IV SCH (17:55)
--- NOTE | 2019-11-27 18:50 | EKG REPORT ---
SEVERITY:- OTHERWISE NORMAL ECG - SINUS RHYTHM LEFT AXIS DEVIATION : Confirmed by: Dorina Koroma 27-Nov-2019 18:48:51
[2019-11-27] MEDS: NORMAL SALINE 10 ML SDV (AFTER EACH USE) IV PRN (19:57)
[2019-11-27] MEDS: ATORVASTATIN CALCIUM 40 MG TABLET PO SCH (21:24)
[2019-11-27] MEDS: NORMAL SALINE 10 ML SDV (SCHEDULED) IV SCH (22:00)
[2019-11-27] MEDS ORDERED: CEFEPIME 2 GM/D5W RTU 2 GM/50 ML RTUPB IV SCH (22:00)
[2019-11-27] MEDS ORDERED: ATORVASTATIN CALCIUM 80 MG TABLET PO SCH (22:00)
[2019-11-28] MEDS: CEFEPIME HCL 2 GM in DEXTROSE 5%-WATER 50 ML IV SCH ×2 (05:10→18:08)
[2019-11-28] MEDS: HYDRALAZINE HCL 25 MG TABLET PO SCH ×2 (05:25→18:11)
[2019-11-28] MEDS: HEPARIN SOD (PORCINE) 5,000 UNIT/ML 1 ML VIAL SUBCUT SCH ×3 (05:25→21:33)
[2019-11-28] MEDS ORDERED: LISINOPRIL 10 MG TABLET PO SCH (10:00)
[2019-11-28] MEDS: NORMAL SALINE 10 ML SDV (SCHEDULED) IV SCH ×2 (10:17→21:33)
[2019-11-28] MEDS: NORMAL SALINE 10 ML SDV (AFTER EACH USE) IV PRN ×2 (10:17→20:11)
[2019-11-28] MEDS: ALLOPURINOL 100 MG TABLET PO SCH (10:20)
[2019-11-28] MEDS: ASPIRIN 81 MG TABLET, ENT COATED PO SCH (10:20)
[2019-11-28] MEDS: METHOCARBAMOL 750 MG TABLET PO SCH (10:21)
[2019-11-28] MEDS: LISINOPRIL 10 MG TABLET PO SCH (10:21)
[2019-11-28] MEDS: FLUTICASONE NASAL SPRAY 50 MCG/SPRY 120 SPRAY/16 GM NASL SCH (10:24)
--- NOTE | 2019-11-28 14:55 | PDOC PROGRESS REPORT ---
Subjective Progress Note for:: 11/28/19 Subjective:: No adverse events overnight. No new complaints. Vital signs been stable. Eating and drinking without difficulty. Currently just waiting for authorization from the [place] for his home antibiotics. Reason For Visit: UTI Physical Exam Vital Signs: Temp Pulse Resp BP Pulse Ox 98.2 F 62 16 113/63 96 11/28/19 11:27 11/28/19 14:01 11/28/19 14:01 11/28/19 11:27 11/28/19 14:01 Intake & Output 11/27/19 11/28/19 11/29/19 06:59 06:59 06:59 Intake Total 990 360 Output Total 1350 Balance -360 360 Weight 88.3 kg 88.3 kg General appearance: PRESENT: no acute distress, cooperative, obese Respiratory exam: PRESENT: clear to auscultation jo ann, symmetrical, unlabored. ABSENT: accessory muscle use, chest wall tenderness, crackles, prolonged expiratory phas, retraction, rhonchi, tachypnea, wheezes Cardiovascular exam: PRESENT: RRR, +S1, +S2 Pulses: PRESENT: normal carotid pulses Vascular exam: PRESENT: normal capillary refill GI/Abdominal exam: PRESENT: normal bowel sounds, soft. ABSENT: distended, guarding, rebound, tenderness Gentrourinary exam: PRESENT: indwelling catheter - Left nephrostomy Extremities exam: ABSENT: clubbing, pedal edema Musculoskeletal exam: PRESENT: normal inspection. ABSENT: deformity Neurological exam: PRESENT: alert, awake, oriented to person, oriented to place, oriented to situation Psychiatric exam: PRESENT: appropriate affect, normal mood Skin exam: PRESENT: dry, warm Results Laboratory Results: 11/26/19 20:30 11/26/19 20:30 11/26/19 20:30 Troponin I < 0.012 Impressions: Guidance Fluoroscopy 11/27/19 00:00 IMPRESSION: SUCCESSFUL PLACEMENT OF A 5 FR DUAL LUMEN 42 CM PICC IN THE LEFT BASILIC VEIN. Interventional Vascular Procedure 11/27/19 00:00 IMPRESSION: SUCCESSFUL PLACEMENT OF A 5 FR DUAL LUMEN 42 CM PICC IN THE LEFT BASILIC VEIN. PICC Line Insertion 11/27/19 00:00 IMPRESSION: SUCCESSFUL PLACEMENT OF A 5 FR DUAL LUMEN 42 CM PICC IN THE LEFT B ASILIC VEIN. Assessment and Plan - Diagnosis (1) Urinary tract infection Qualifiers: Urinary tract infection type: catheter-associated UTI Indwelling urinary catheter type: nephrostomy catheter Encounter type: subsequent encounter Qualified Code(s): T83.512D - Infection and inflammatory reaction due to nephrostomy catheter, subsequent encounter; N39.0 - Urinary tract infection, site not specified Is this a current diagnosis for this admission?: Yes Plan: He has grown Pseudomonas out of his urine that is resistant for quinolones. We have got him a PICC line and set him up for cefepime at home. 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 At this point we are just [facility]. - Time Time Spent with patient: 15-24 minutes
[2019-11-28] MEDS: ATORVASTATIN CALCIUM 40 MG TABLET PO SCH (21:32)
[2019-11-29] MEDS: CEFEPIME HCL 2 GM in DEXTROSE 5%-WATER 50 ML IV SCH ×2 (06:38→17:13)
[2019-11-29] MEDS: HYDRALAZINE HCL 25 MG TABLET PO SCH ×2 (06:40→17:13)
[2019-11-29] MEDS: HEPARIN SOD (PORCINE) 5,000 UNIT/ML 1 ML VIAL SUBCUT SCH ×3 (06:40→21:34)
[2019-11-29] MEDS: FLUTICASONE NASAL SPRAY 50 MCG/SPRY 120 SPRAY/16 GM NASL SCH (10:22)
[2019-11-29] MEDS: LISINOPRIL 10 MG TABLET PO SCH (10:23)
[2019-11-29] MEDS: ASPIRIN 81 MG TABLET, ENT COATED PO SCH (10:23)
[2019-11-29] MEDS: ALLOPURINOL 100 MG TABLET PO SCH (10:23)
[2019-11-29] MEDS: NORMAL SALINE 10 ML SDV (SCHEDULED) IV SCH ×2 (10:23→21:35)
[2019-11-29] MEDS: METHOCARBAMOL 750 MG TABLET PO SCH (10:24)
--- NOTE | 2019-11-29 16:32 | PDOC PROGRESS REPORT ---
Subjective Progress Note for:: 11/29/19 Subjective:: No adverse events overnight. No new complaints. Vital signs been stable. Eating and drinking without difficulty. Currently just waiting for authorization from the [place] for his home antibiotics. Reason For Visit: UTI Physical Exam Vital Signs: Temp Pulse Resp BP Pulse Ox 98.2 F 56 L 16 124/60 98 11/29/19 10:55 11/29/19 10:55 11/29/19 10:55 11/29/19 10:55 11/29/19 10:55 Intake & Output 11/28/19 11/29/19 11/30/19 06:59 06:59 06:59 Intake Total 990 800 762 Output Total 1350 25 Balance -360 775 762 Weight 88.3 kg 88.6 kg General appearance: PRESENT: no acute distress, cooperative, obese Respiratory exam: PRESENT: clear to auscultation jo ann, symmetrical, unlabored. ABSENT: accessory muscle use, chest wall tenderness, crackles, prolonged expiratory phas, retraction, rhonchi, tachypnea, wheezes Cardiovascular exam: PRESENT: RRR, +S1, +S2 Pulses: PRESENT: normal carotid pulses Vascular exam: PRESENT: normal capillary refill GI/Abdominal exam: PRESENT: normal bowel sounds, soft. ABSENT: distended, guarding, rebound, tenderness Gentrourinary exam: PRESENT: indwelling catheter - Left nephrostomy Extremities exam: ABSENT: clubbing, pedal edema Musculoskeletal exam: PRESENT: normal inspection. ABSENT: deformity Neurological exam: PRESENT: alert, awake, oriented to person, oriented to place, oriented to situation Psychiatric exam: PRESENT: appropriate affect, normal mood Skin exam: PRESENT: dry, warm Results Laboratory Results: 11/26/19 20:30 11/26/19 20:30 11/26/19 20:30 Troponin I < 0.012 Impressions: Guidance Fluoroscopy 11/27/19 00:00 IMPRESSION: SUCCESSFUL PLACEMENT OF A 5 FR DUAL LUMEN 42 CM PICC IN THE LEFT BASILIC VEIN. Interventional Vascular Procedure 11/27/19 00:00 IMPRESSION: SUCCESSFUL PLACEMENT OF A 5 FR DUAL LUMEN 42 CM PICC IN THE LEFT BASILIC VEIN. PICC Line Insertion 11/27/19 00:00 IMPRESSION: SUCCESSFUL PLACEMENT OF A 5 FR DUAL LUMEN 42 CM PICC IN THE LEFT BASILIC VEIN. Assessment and Plan - Diagnosis (1) Urinary tract infection Qualifiers: Urinary tract infection type: catheter-associated UTI Indwelling urinary catheter type: nephrostomy catheter Encounter type: subsequent encounter Qualified Code(s): T83.512D - Infection and inflammatory reaction due to nephrostomy catheter, subsequent encounter; N39.0 - Urinary tract infection, site not specified Is this a current diagnosis for this admission?: Yes Plan: He has grown Pseudomonas out of his urine that is resistant for quinolones. We have got him a PICC line and set him up for cefepime at home. 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 At this point we are just [facility]. - Time Time Spent with patient: 15-24 minutes
[2019-11-29] MEDS: ATORVASTATIN CALCIUM 40 MG TABLET PO SCH (21:34)
[2019-11-30] MEDS: CEFEPIME HCL 2 GM in DEXTROSE 5%-WATER 50 ML IV SCH ×2 (06:39→18:52)
[2019-11-30] MEDS: HYDRALAZINE HCL 25 MG TABLET PO SCH ×2 (06:40→18:52)
[2019-11-30] MEDS: HEPARIN SOD (PORCINE) 5,000 UNIT/ML 1 ML VIAL SUBCUT SCH ×2 (06:40→16:29)
[2019-11-30] MEDS: ALLOPURINOL 100 MG TABLET PO SCH (11:07)
[2019-11-30] MEDS: METHOCARBAMOL 750 MG TABLET PO SCH (11:07)
[2019-11-30] MEDS: ASPIRIN 81 MG TABLET, ENT COATED PO SCH (11:07)
[2019-11-30] MEDS: LISINOPRIL 10 MG TABLET PO SCH (11:07)
[2019-11-30] MEDS: FLUTICASONE NASAL SPRAY 50 MCG/SPRY 120 SPRAY/16 GM NASL SCH (11:10)
[2019-11-30] MEDS: NORMAL SALINE 10 ML SDV (SCHEDULED) IV SCH (11:24)
--- NOTE | 2019-11-30 16:23 | PDOC DISCHARGE SUMMARY ---
Impression - Admit/DC Date/PCP Admission Date/Primary Care Provider: 11/27/19 00:24 MANJIT CONDON PA-C Discharge Date: 11/30/19 - Discharge Diagnosis (1) Urinary tract infection Is this a current diagnosis for this admission?: Yes - Additional Information Resuscitation Status: Full Code Discharge Diet: Other (Comments) - Resume previous Discharge Activity: Activity As Tolerated Referrals: [facility] [NO LOCAL MD] - 12/06/19 11:00 am (today 10 am [facility] january 03 [facility] fe[facility]ruary 14 1 pm [facility] Home Medications: Allopurinol [Zyloprim 100 mg Tablet] 200 mg PO DAILY 04/13/19 Aspirin [Ecotrin 81 mg EC Tablet] 81 mg PO DAILY 04/13/19 Cetirizine HCl [Zyrtec 10 mg Tablet] 10 mg PO DAILYP PRN 04/13/19 Hydralazine HCl [Apresoline 25 mg Tablet] 25 mg PO BID 04/13/19 Methocarbamol [Robaxin 750 mg Tablet] 750 mg PO DAILY 04/13/19 Ondansetron HCl [Zofran 8 mg Tablet] 8 mg PO BIDP PRN 04/13/19 Atorvastatin Calcium [Lipitor 80 mg Tablet] 40 mg PO QHS 06/29/19 Lisinopril [Prinivil 40 mg Tablet] 40 mg PO DAILY 06/29/19 Moxifloxacin HCl [Vigamox 0.5% Oph Soln 3 ml] 1 drop OP ASDIR PRN 06/29/19 Carboxymethylcellulose Sodium [Refresh Plus 0.5% Oph Soln 0.4 ml [place]pe[place]] 1 drop OU BIDP PRN 11/27/19 Diclofenac Sodium [Diclo Gel] 1 each TP QIDP PRN 11/27/19 Fluticasone Propionate [Flonase Nasal [place] 50 Mcg/[place] 16 gm] 2 spray NASL DAILY 11/27/19 Additional Information: Will be on cefepime 2 g IV every 12 hours x14 days for Pseudomonas UTI History of Present Illiness History of Present Illness: SHARITA ORTIZ is a 69 year old male with a past medical history of hypertension, urinary bladder cancer, status post cystectomy with ileal conduit and right lower quadrant percutaneous nephrostomy on the left. He presents after 4 days of fatigue, abdominal pain, nausea and diarrhea prompting evaluation by urologist at [facility] resulting in urine culture positive Pseudomonas susceptible to IV antibiotics only and subsequently referred to the hospital for treatment. Though biochemically and by a physically he appears well consultation with infectious disease at [facility] recommends IV antibiotics for uncertain duration. He is referred to the hospitalist for admission. Hospital Course Hospital Course: We were able to look up his culture that is been done outside the hospital and it showed a Pseudomonas that was resistant to fluoroquinolones. It was decided to send him home on cefepime. He was here for a few days because we will try to get authorization from the [place]. He got a PICC line and ultimately the [place] approved it. He is being followed by infectious disease through the [place]. He will get his last dose this evening and then he will resume his schedule treatment tomorrow morning because that is when the antibiotics are going to be delivered. His labs and examination were reassuring he was discharged in stable condition. Physical Exam Vital Signs: Temp Pulse Resp BP Pulse Ox 97.3 F 57 L 20 123/79 97 11/30/19 11:28 11/30/19 11:28 11/30/19 11:28 11/30/19 11:28 11/30/19 11:28 Intake & Output 11/29/19 11/30/19 12/01/19 06:59 06:59 06:59 Intake Total 800 1384 530 Output Total 25 Balance 775 1384 530 Weight 88.6 kg 91.5 kg General appearance: PRESENT: no acute distress, cooperative, obese Respiratory exam: PRESENT: clear to auscultation jo ann, symmetrical, unlabored. ABSENT: accessory muscle use, chest wall tenderness, crackles, prolonged expiratory phas, retraction, rhonchi, tachypnea, wheezes Cardiovascular exam: PRESENT: RRR, +S1, +S2 Pulses: PRESENT: normal carotid pulses Vascular exam: PRESENT: normal capillary refill GI/Abdominal exam: PRESENT: normal bowel sounds, soft. ABSENT: distended, g uarding, rebound, tenderness Gentrourinary exam: PRESENT: indwelling catheter - Left nephrostomy Extremities exam: ABSENT: clubbing, pedal edema Musculoskeletal exam: PRESENT: normal inspection. ABSENT: deformity Neurological exam: PRESENT: alert, awake, oriented to person, oriented to place, oriented to situation Psychiatric exam: PRESENT: appropriate affect, normal mood Skin exam: PRESENT: dry, warm Results Laboratory Results: WBC 7.9 10^3/uL (4.0-10.5) 11/26/19 20:30 RBC 4.62 10^6/uL (4.35-5.55) 11/26/19 20:30 Hgb 15.1 g/dL (13.5-17.0) 11/26/19 20:30 Hct 44.8 % (37.9-51.0) 11/26/19 20:30 MCV 97 fl (80-97) 11/26/19 20:30 MCH 32.7 pg (27.0-33.4) 11/26/19:30 MCHC 33.8 g/dL (32.0-36.0) 11/26/19 20:30 RDW 14.4 % (11.5-14.0) H 11/26/19 20:30 Plt Count 181 10^3/uL (150-450) 11/26/19 20:30 Lymph % (Auto) 36.4 % (13-45) 11/26/19 20:30 [place] % (Auto) 7.6 % (3-13) 11/26/19 20:30 Eos % (Auto) 2.0 % (0-6) 11/26/19 20:30 Baso % (Auto) 0.6 % (0-2) 11/26/19 20:30 Absolute Neuts (auto) 4.2 10^3/uL (1.7-8.2) 11/26/19 20:30 Absolute Lymphs (auto) 2.9 10^3/uL (0.5-4.7) 11/26/19 20:30 Absolute Monos (auto) 0.6 10^3/uL (0.1-1.4) 11/26/19 20:30 Absolute Eos (auto) 0.2 10^3/uL (0.0-0.6) 11/26/19 20:30 Absolute Basos (auto) 0.0 10^3/uL (0.0-0.2) 11/26/19 20:30 Seg Neutrophils % 53.4 % (42-78) 11/26/19 20:30 PT 14.2 SEC (11.4-15.4) 11/26/19 20:30 INR 1.09 11/26/19 20:30 VBG pH 7.37 (7.30-7.42) 11/26/19 21:49 VBG pCO2 38.3 mmHg (35-63) 11/26/19 21:49 VBG HCO3 21.4 mmol/L (20-32) 11/26/19 21:49 VBG Base Excess -3.2 mmol/L 11/26/19 21:49 Sodium 140.5 mmol/L (137-145) 11/26/19 20:30 Potassium 4.2 mmol/L (3.6-5.0) 11/26/19 20:30 Chloride 109 mmol/L (98-107) H 11/26/19 20:30 Carbon Dioxide 22 mmol/L (22-30) 11/26/19 20:30 Anion Gap 10 (5-19) 11/26/19 20:30 BUN 15 mg/dL (7-20) 11/26/19 20:30 Creatinine 1.23 mg/dL (0.52-1.25) 11/26/19 20:30 Est GFR ( Amer) > 60 (>60) 11/26/19 20:30 Est GFR (MDRD) Non-Af 58 (>60) L 11/26/19 20:30 Glucose 115 mg/dL (75-110) H 11/26/19 20:30 POC Glucose 101 mg/dL (70-110) 11/26/19 22:54 Lactic Acid 1.8 mmol/L (0.7-2.1) 11/27/19 02:28 Calcium 9.8 mg/dL (8.4-10.2) 11/26/19 20:30 Total Bilirubin 0.6 mg/dL (0.2-1.3) 11/26/19 20:30 Direct Bilirubin 0.0 mg/dL (0.0-0.4) 11/26/19 20:30 Neonat Total Bilirubin Not Reportable 11/26/19 20:30 Neonat Direct Bilirubin Not Reportable 11/26/19 20:30 Neonat Indirect Bili Not Reportable 11/26/19 20:30 AST 37 U/L (17-59) 11/26/19 20:30 ALT 33 U/L (<50) 02/17/20 20:30 Alkaline Phosphatase 54 U/L (38-126) 11/26/19 20:30 Troponin I < 0.012 ng/mL 11/26/19 20:30 Total Protein 7.4 g/dL (6.3-8.2) 11/26/19 20:30 Albumin 4.1 g/dL (3.5-5.0) 11/26/19 20:30 Urine Color YELLOW 11/26/19 22:47 Urine Color YELLOW 11/26/19 22:47 Urine Appearance SLIGHTLY-CLOUDY 11/26/19 22:47 Urine Appearance SLIGHTLY-CLOUDY 11/26/19 22:47 Urine pH 5.0 (5.0-9.0) 11/26/19 22:47 Urine pH 6.0 (5.0-9.0) 11/26/19 22:47 Ur Specific [place] 1.013 11/26/19 22:47 Ur Specific [place] 1.014 11/26/19 22:47 Urine Protein 30 mg/dL (NEGATIVE) H 11/26/19 22:47 Urine Protein NEGATIVE mg/dL (NEGATIVE) 11/26/19 22:47 Urine Glucose (UA) NEGATIVE mg/dL (NEGATIVE) 11/26/19 22:47 Urine Glucose (UA) NEGATIVE mg/dL (NEGATIVE) 11/26/19 22:47 Urine Ketones NEGATIVE mg/dL (NEGATIVE) 11/26/19 22:47 Urine Ketones NEGATIVE mg/dL (NEGATIVE) 11/26/19 22:47 Urine Blood LARGE (NEGATIVE) H 11/26/19 22:47 Urine Blood NEGATIVE (NEGATIVE) 11/26/19 22:47 Urine Nitrite NEGATIVE (NEGATIVE) 11/26/19 22:47 Urine Nitrite NEGATIVE (NEGATIVE) 11/26/19 22:47 Urine Bilirubin NEGATIVE (NEGATIVE) 11/26/19 22:47 Urine Bilirubin NEGATIVE (NEGATIVE) 11/26/19 22:47 Urine Urobilinogen NEGATIVE mg/dL (<2.0) 11/26/19 22:47 Urine Urobilinogen NEGATIVE mg/dL (<2.0) 11/26/19 22:47 Ur Leukocyte Esterase LARGE (NEGATIVE) H 11/26/19 22:47 Ur Leukocyte Esterase TRACE (NEGATIVE) H 11/26/19 22:47 Urine WBC (Auto) 47 /HPF 11/26/19 22:47 Urine WBC (Auto) 63 /HPF 11/26/19 22:47 Urine RBC (Auto) 12 /HPF 11/26/19 22:47 Urine RBC (Auto) 49 /HPF 11/26/19 22:47 U Non-Squamous Epis Auto 1 /HPF 11/26/19 22:47 Urine Mucus (Auto) RARE /LPF 11/26/19 22:47 Urine Mucus (Auto) RARE /LPF 11/26/19 22:47 Urine Ascorbic Acid NEGATIVE (NEGATIVE) 11/26/19 22:47 Urine Ascorbic Acid NEGATIVE (NEGATIVE) 11/26/19 22:47 11/26/19 20:30 Troponin I < 0.012 Impressions: Guidance Fluoroscopy 11/27/19 00:00 IMPRESSION: SUCCESSFUL PLACEMENT OF A 5 FR DUAL LUMEN 42 CM PICC IN THE LEFT BASILIC VEIN. Interventional Vascular Procedure 11/27/19 00:00 IMPRESSION: SUCCESSFUL PLACEMENT OF A 5 FR DUAL LUMEN 42 CM PICC IN THE LEFT BASILIC VEIN. PICC Line Insertion 11/27/19 00:00 IMPRESSION: SUCCESSFUL PLACEMENT OF A 5 FR DUAL LUMEN 42 CM PICC IN THE LEFT BASILIC VEIN. Plan Time Spent: Greater than 30 Minutes Stroke Is this a Stroke Patient?: No Acute Heart Failure - Is this a Heart Failure Patient?: No
[2019-11-30 19:32] VITALS: BP 112/65
== END 2019-11-30 19:00 | disposition home health service (06) ==
LOC: ER 17:59 → EH 11-27 00:24 → INTOOBSV 11-27 00:24 → 4S 11-27 00:58
PROVIDERS: ADMIT Internal Medicine; ATTEND Internal Medicine
DX: T83.512D Infection and inflammatory reaction due to nephrostomy catheter, subsequent encounter (principal); N39.0 Urinary tract infection, site not specified; B96.5 Pseudomonas (aeruginosa) (mallei) (pseudomallei) as the cause of diseases classified elsewhere; Y84.6 Urinary catheterization as the cause of abnormal reaction of the patient, or of later complication, without mention of misadventure at the time of the procedure; I10 Essential (primary) hypertension; E66.9 Obesity, unspecified; M19.90 Unspecified osteoarthritis, unspecified site; Z85.51 Personal history of malignant neoplasm of bladder; Z90.6 Acquired absence of other parts of urinary tract; Z16.23 Resistance to quinolones and fluoroquinolones; R53.1 Weakness; R19.7 Diarrhea, unspecified; Z93.6 Other artificial openings of urinary tract status; M10.9 Gout, unspecified; R51 Headache; Z79.82 Long term (current) use of aspirin; Z79.899 Other long term (current) drug therapy; Z93.2 Ileostomy status; Z90.79 Acquired absence of other genital organ(s)
CPT/HCPCS: 93005; 99285; 96374; 36415 ×2; 87040; 82962; 83605 ×2; 85025; 85610; 80053; 81001; 84484; 82803; 36569; 77001; 76937; 93010; J1644; J3490 ×6; J0692 ×4; J7060 ×4; J1642 ×4; J2543; J2185; G0378